=== PATIENT | female | born 1965 | race Caucasian/White ===

== ENCOUNTER 2018-05-15 13:30 | Outpatient (RCR) | payer OTHER, MEDICAID, SELFPAY ==
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
== END 2018-09-03 16:39 | disposition home or self-care (01) ==
LOC: PHYS 13:30
PROVIDERS: Family Provider Family Medicine; PCP Family Medicine; Visit Provider Family Medicine
DX: M54.30 Sciatica, unspecified side (principal); M25.559 Pain in unspecified hip
CPT/HCPCS: 97035; 97110; 97140; 97162; 97535

== ENCOUNTER 2018-07-02 15:02 | Emergency (ER) | payer OTHER, MEDICAID, SELFPAY ==
[2018-07-02 15:19] VITALS: BP 149/93; PULSE 122; RESP 20; TEMP 36.7; O2SAT 96
--- NOTE | 2018-07-02 15:23 | ED_ITS ---
HPI - Back Pain/Injury <Yusra Lujan, KNIFE SHARPENER-BC - Last Filed: 07/02/18 17:41> General Chief Complaint: Back Pain/Injury Stated Complaint: states unable to walk for 5 days Time Seen by Provider: 07/02/18 15:07 Source: patient Mode of arrival: ambulatory Limitations: no limitations History of Present Illness HPI Narrative: The patient is a 52-year-old female nonsmoker with history of diabetes and chronic back pain who presents with a chief complaint of not being able to walk for 5 days. She was able to ambulate in the emergency department with a walker, and clarify that she is having trouble standing and walking for prolonged periods due to pain on the left side of her back. She denies any fevers nausea vomiting diarrhea or IV drug use. She states she has 3 known slipped disc in her primary care provider's placed in orthopedic referral. She has not followed up with the orthopedist for her back pain a yet, but has been in physical therapy for 3 years. She states she thinks she over did it at therapy 5 days ago, and has since had progressively worsening muscle pain on the left side of her back. She states everything ?feels tight. The patient states she occasion takes 3 Motrin for her pain, but has not taken anything other than that this morning. She presents requesting for solution other than pain medication. She also complains of some dysuria for the past month, no urgency or frequency. She states she saw her primary care physician Dr. Valdez last week. She denies any new weakness, numbness, tingling incontinence of bowel or incontinence of bladder. Related Data Home Medications Medication Instructions Recorded Confirmed Respironics DreamStation BIPAP #1 ea 05/21/18 07/02/18 fluticasone propion-salmeterol 1 puff INHALATION BID 07/02/18 07/02/18 [Wixela Inhub] glimepiride 2 mg PO DAILY 07/02/18 07/02/18 losartan 50 mg PO DAILY 07/02/18 07/02/18 metformin 1,000 mg PO BID 07/02/18 07/02/18 thyroid (pork) [[place] Thyroid] 135 mg PO DAILY 07/02/18 07/02/18 triamterene-hydrochlorothiazid 1 cap PO DAILY 07/02/18 07/02/18 Previous Rx's Medication Instructions Recorded cyclobenzaprine 10 mg PO TID PRN #30 tab 07/02/18 diclofenac sodium 2 gram TOP QID #100 gram 07/02/18 lidocaine 1 patch TOP DAILY #15 each 07/02/18 sulfamethoxazole-trimethoprim 1 tab PO BID #6 tab 07/02/18 Allergies Allergy/AdvReac Type Severity Reaction Status Date / Time No Known Drug Allergies Allergy Unverified 05/21/18 16:21 Review of Systems <NICOLA Fortune - Last Filed: 07/02/18 17:41> Review of Systems GENERAL: Denies chills, fatigue, malaise, fever, sweats. HEENT: Denies sinus pain, ear pain, sore throat, difficulty swallowing, dizziness. RESPIRATORY: Denies dyspnea, cough, wheezing, hemoptysis, sputum. CARDIOVASCULAR: Denies chest pain, palpitations, orthopnea, edema, GASTROINTESTINAL: Denies nausea, vomiting, abdominal pain, diarrhea, constipation, melena. : See HPI MUSCULOSKELETAL: See HPI SKIN: Denies rash, skin lesions, or other NEUROLOGIC: Denies weakness, headache, numbness, change in speech, confusion, seizures, incoordination. PSYCHIATRIC: No concerning psychosocial issues. 12 point review of systems is negative except for those stated above PFSH <NICOLA Fortune - Last Filed: 07/02/18 17:41> Social History Smoking Status: Never smoker Social History Smoking Status: Never smoker Exam <NICOLA Fortune - Last Filed: 07/02/18 17:41> Narrative Exam Narrative: GENERAL: This is a well-nourished, well-developed patient, appears uncomfortable HEAD: Atraumatic. Normocephalic. No temporal or scalp tenderness. EYES: Pupils equal round and reactive. Extraocular motions intact. No scleral icterus. No injection or drainage. no nystagmus. ENT: Nose without bleeding, purulent drainage or septal hematoma. Throat without erythema, tonsillar hypertrophy or exudate. Uvula midline. Airway patent. NECK: Trachea midline. No JVD or lymphadenopathy. Supple, nontender, no meningeal signs. CARDIOVASCULAR: Regular rate and rhythm RESPIRATORY: Clear to auscultation. Breath sounds equal bilaterally. No wheezes, rales, or rhonchi. No cough. No increased respiratory effort. GASTROINTESTINAL: Abdomen soft, non-tender, nondistended. No hepato- splenomegaly, or palpable masses. No guarding. EXTREMITIES: No clubbing, cyanosis, or edema. No joint tenderness, effusion, or edema noted. BACK: Nontender without deformity or crepitance. No flank tenderness. no pain to C-spine or spinal palpation. Significant pain to left paraspinal muscle palpation in thoracic area. Pain to palpation of right paraspinal muscle and thoracic area. Stiff gait. Strength is equal upper and lower extremities bilaterally. Cranial nerves grossly intact. NEURO: AOx3. SKIN: No rash or erythema. No rash erythema ecchymosis noted on back. Initial Vital Signs Initial Vital Signs: Vital Signs Temperature 98.0 F 07/02/18 15:19 Pulse Rate 122 H 07/02/18 15:19 Respiratory Rate 20 07/02/18 15:19 Blood Pressure 149/93 H 07/02/18 15:19 Pulse Oximetry 96 07/02/18 15:19 <Margarette Fish DO - Last Filed: 07/05/18 16:32> Initial Vital Signs Initial Vital Signs: Vital Signs Temperature 98.0 F 07/02/18 15:19 Pulse Rate 122 H 07/02/18 15:19 Respiratory Rate 20 07/02/18 15:19 Blood Pressure 149/93 H 07/02/18 15:19 Pulse Oximetry 96 07/02/18 15:19 Course <RANULFO Fortune-ASHLEY - Last Filed: 07/02/18 17:41> Course Narrative: I checked on the patient several times throughout her stay in the emergency department. She declined pain medication, but felt much improved after Flexeril and a lidocaine patch. I did discuss with her that her 1st urine sample had high level of squamous cells, so she obtained another sample. Orders Ordered: Discontinued Medications Cyclobenzaprine HCl (Flexeril) 10 mg PO NOW ONE Stop: 07/02/18 15:20 Last Admin: 07/02/18 15:31 Dose: 10 mg Lidocaine (Lidoderm) 1 each TOP NOW ONE Stop: 07/02/18 15:20 Last Admin: 07/02/18 15:37 Dose: 1 each Vital Signs - 8 hr 07/02/18 15:19 Temperature 98.0 F Pulse Rate 122 H Respiratory Rate 20 Blood Pressure 149/93 H Pulse Oximetry 96 <Margarette Fish DO - Last Filed: 07/05/18 16:32> Orders Ordered: Discontinued Medications Cyclobenzaprine HCl (Flexeril) 10 mg PO NOW ONE Stop: 07/02/18 15:20 Last Admin: 07/02/18 15:31 Dose: 10 mg Lidocaine (Lidoderm) 1 each TOP NOW ONE Stop: 07/02/18 15:20 Last Admin: 07/02/18 15:37 Dose: 1 each Vital Signs - 8 hr 07/02/18 15:19 Temperature 98.0 F Pulse Rate 122 H Respiratory Rate 20 Blood Pressure 149/93 H Pulse Oximetry 96 MDM - Back Pain/Injury <RANULFO Fortune-ASHLEY - Last Filed: 07/02/18 17:41> Lab Data Lab Results 07/02/18 07/02/18 Range/Units 15:45 16:54 Urine RBC None seen 0-1/hpf (0-5/HPF) Urine WBC 10-30/hpf H 1-5/hpf D (0-5/HPF) Ur Squamous Epith Cells 10-30 /hpf H 1-5 /hpf D (0-5/HPF) Ur Transition Epith Cell 1-5/hpf (0-5/HPF) Amorphous Sediment 1+ Urine Bacteria Moderate (10-30) H Few (2-10) H (None) Hyaline Casts 1-5/lpf (None) Urine Mucus 1+ H (Negative) Ur Culture Indicated? Cult not indicated Cult not indicated Urine Dip Bedside Urine Glucose 100 mg/dl Bedside Urine Bilirubin - Negative Bedside Urine Ketone ++ 40 Urine Specific [place] 1.030 Bedside Urine Occult Blood +/- Bedside Urine pH 5.5 Bedside Urine Protein +++ 300 Bedside Urine Urobilinogen 1+ 2mg Bedside Urine Nitrite + Positive Bedside Urine Leukocytes +++ 500 Esterase MDM Narrative Medical decision making narrative: The patient is a 52-year-old female with history of who presents with a chief complaint of left-sided back pain. she did not want narcotic pain medication, but felt much better after Flexeril as well as a lidocaine patch to the emergency department. She had some urinary symptoms such as dysuria, and her 1st UA sample had many squamous cells. However a repeat had nitrites as well as a small bacteria and leukocyte esterase. Given the 2nd urine dip, I will treat her for UTI this point time with Macrobid. She does not have any red flag symptoms including incontinence or saddle anesthesia. She does not have history of IV drug use. I discussed at length follow up with her primary care provider as well as her pending referral to Orthopedics. Patient was given a prescription of lidocaine patch, Voltaren gel as well as Flexeril. Discussed return precautions of saddle anesthesia, incontinence of bowel or bladder or acute concerns. She was able to ambulate around the emergency department well prior to discharge. <Margarette Fish, - Last Filed: 07/05/18 16:32> Lab Data Lab Results 07/02/18 07/02/18 Range/Units 15:45 16:54 Urine RBC None seen 0-1/hpf (0-5/HPF) Urine WBC 10-30/hpf H 1-5/hpf D (0-5/HPF) Ur Squamous Epith Cells 10-30 /hpf H 1-5 /hpf D (0-5/HPF) Ur Transition Epith Cell 1-5/hpf (0-5/HPF) Amorphous Sediment 1+ Urine Bacteria Moderate (10-30) H Few (2-10) H (None) Hyaline Casts 1-5/lpf (None) Urine Mucus 1+ H (Negative) Ur Culture Indicated? Cult not indicated Cult not indicated Urine Dip Bedside Urine Glucose 100 mg/dl Bedside Urine Bilirubin - Negative Bedside Urine Ketone ++ 40 Urine Specific [place] 1.030 Bedside Urine Occult Blood +/- Bedside Urine pH 5.5 Bedside Urine Protein +++ 300 Bedside Urine Urobilinogen 1+ 2mg Bedside Urine Nitrite + Positive Bedside Urine Leukocytes +++ 500 Esterase Discharge Plan Departure Patient Disposition: Home Clinical Impression: Muscle spasm Thoracic back pain Qualifiers: Chronicity: chronic Back pain laterality: left Qualified Code(s): M54.6 - Pain in thoracic spine UTI (urinary tract infection) Qualifiers: Urinary tract infection type: site unspecified Hematuria presence: with hematuria Qualified Code(s): N39.0 - Urinary tract infection, site not specified Discharge Date/Time: 07/02/18 17:53 Interventions: ED Discharge Assessment Last Done: 07/02/18 17:53 Instructions: DI for Low Back Pain, DI for Urinary Tract Infection (UTI), DI for Back Spasm, DI for Thoracic Back Pain Activity Restrictions/Additional Instructions: Today we gave you muscle relaxers and lidocaine patches for your pain. this appeared to help her pain in the emergency department. Please follow up with your primary care provider and orthopedist with the referral goes through. Come back to the emergency department for any acute concerns such as incontinence of bowel, incontinence of bladder or numbness where you would sit in a horse. Please be aware that the muscle relaxer can be sedating. I also gave you prescription for Voltaren gel, which is a topical anti-inflammatory. I am also giving you an antibiotic for a urinary tract infection. Please monitor for worsening, fevers vomiting or any acute concerns. Come back to the emergency department for any acute concerns of lease follow up with primary care physician as scheduled on the of next month. Prescriptions: New cyclobenzaprine 10 mg tablet 10 mg PO TID PRN (Reason: muscle spasm) Qty: 30 RF: 0 lidocaine 5 % adhesive patch,medicated 1 patch TOP DAILY Qty: 15 RF: 0 diclofenac sodium 1 % gel 2 gram TOP QID Qty: 100 RF: 0 sulfamethoxazole-trimethoprim 800-160 mg tablet 1 tab PO BID Qty: 6 RF: 0 No Action losartan 50 mg tablet 50 mg PO DAILY RF: 0 fluticasone propion-salmeterol [Wixela Inhub] 250-50 mcg/dose blister with device 1 puff Inhalation BID RF: 0 triamterene-hydrochlorothiazid 37.5-25 mg capsule 1 cap PO DAILY RF: 0 glimepiride 2 mg tablet 2 mg PO DAILY RF: 0 metformin 1,000 mg tablet 1,000 mg PO BID RF: 0 thyroid (pork) [[place] Thyroid] 90 mg tablet 135 mg PO DAILY RF: 0 Respironics DreamStation BIPAP Qty: 1 RF: 0 Referrals: Lebron Valdez MD [Primary Care Provider] - <Margarette Fish DO - Last Filed: 07/05/18 16:32> [facility] ED Attending Krzysztofature Attestation: I was immediately available in the department for consultation. Documentation has been reviewed. I agree with assessment and plan.
[2018-07-02] MEDS: CYCLOBENZAPRINE 10 MG TABLET PO (15:31)
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
[2018-07-02] MEDS: LIDOCAINE PATCH 1 EACH ADH..PATCH TOP (15:37)
[2018-07-02 15:47] LABS: RBC Urine None Seen (0-5/HPF)
[2018-07-02 15:58] LABS: Amorphous Sediment Urine 1+; Bacteria Urine Moderate (10-30); Culture Indicated Urine Cult Not Indicated; Mucus Urine 1+ (Negative); Squamous Epithelial Cell Urine 10-30 /HPF (0-5/HPF); Transitional Epi Cells Urine 1-5/HPF (0-5/HPF); WBC Urine 10-30/HPF (0-5/HPF)
[2018-07-02 17:23] LABS: Bacteria Urine Few (2-10); Culture Indicated Urine Cult Not Indicated; Hyaline Casts Urine 1-5/LPF; RBC Urine 0-1/HPF (0-5/HPF); Squamous Epithelial Cell Urine 1-5 /HPF (0-5/HPF); WBC Urine 1-5/HPF (0-5/HPF)
[2018-07-02 17:45] VITALS: BP 182/103; PULSE 111; RESP 18; O2SAT 96
== END 2018-07-02 17:53 | disposition home or self-care (01) ==
PROVIDERS: Emergency Provider Nurse Practitioner Family; Family Provider Family Medicine; PCP Family Medicine
DX: M62.838 Other muscle spasm (principal); N39.0 Urinary tract infection, site not specified; M54.6 Pain in thoracic spine
CPT/HCPCS: 81003; 81015; 87086; 99282; 99283

== ENCOUNTER → 2018-07-25 19:02 | Outpatient (CLI) | payer OTHER, MEDICAID, SELFPAY ==
--- NOTE | 2018-07-25 19:09 | DI.MRI.S_ITS ---
PROCEDURE: MR LUMBAR SPINE WO CON INDICATIONS: Radiculopathy, lumbar region TECHNIQUE: Noncontrast sagittal T1 spin echo and T2 fast echo, sagittal STIR, axial T1 and T2 fast spin echo through the lumbar spine. In cases with scoliosis, additional coronal T2 fast spin echo may be performed. COMPARISON: [facility], MR, L-SPINE WITHOUT CONTRAST, 10/21/2014, 13:10. [facility], MR, L-SPINE WITHOUT CONTRAST, 02/28/2010, 18:13. FINDINGS: Image quality: Excellent. Alignment and Curvature: There is normal bony alignment. Bone Marrow: Marrow is of normal overall signal. No acute vertebral body compression fractures. Spinal Cord: Conus medullaris terminates at the L1 level. Visualized cord demonstrates normal signal and size. Paraspinous Soft Tissues: No paravertebral masses. T12-L1: Normal appearance. L1-L2: Mild to moderate loss of disc height and disc signal can be seen. No neural foraminal or central canal narrowing are seen. Stable from the prior study. L2-L3: Moderate loss of disc height is seen. Loss of disc signal is seen. Mild to moderate disc bulge is seen. No significant neural foraminal narrowing is seen. An annular fissure is again seen posteriorly, as on series 4 image 10. Stable from the prior study. L3-L4: The disc height is well-preserved. Loss of disc signal is seen at this level. Minimal disc bulge is seen. There is mild to moderate facet hypertrophy seen. Mild left-sided and no right-sided neural foraminal narrowing is seen. The central canal is widely patent. No significant change from the prior. L4-L5: The disc height is well-preserved. Loss of disc signal is seen at this level. Mild to moderate disc bulge is seen. Mild facet joint hypertrophy is seen. There is minimal right-sided and mild left-sided neural foraminal narrowing seen. The central canal is widely patent. When comparison is made with the prior examination, these findings are similar. L5-S1: The disc height is well-preserved. Loss of disc signal is seen at this level. Mild disc bulge is seen, with a mild central disc protrusion. There is a faintly seen annular fissure posteriorly, as on series 4 image 10. Mild facet joint hypertrophy is seen. No neural foraminal narrowing is seen. No central canal narrowing is seen. Stable from the prior study. IMPRESSION: Multiple levels of lumbar spine degenerative change are seen, which are most prominent at the L2-L3 level. No significant change from 2015. Dictated by: Kumar Dominguez M.D. on 07/28/2018 at 9:14 Approved by: Kumar Dominguez M.D. on 07/28/2018 at 9:20
== END ==
PROVIDERS: Family Provider Family Medicine; PCP Family Medicine; Visit Provider Physician Assistant Surgical
DX: M47.26 Other spondylosis with radiculopathy, lumbar region (principal)
CPT/HCPCS: 72148

== ENCOUNTER 2019-04-04 16:44 | Emergency (ER) | payer OTHER, MEDICAID, SELFPAY ==
[2019-04-04 18:05] VITALS: BP 146/92; PULSE 102; RESP 16; TEMP 36.4; O2SAT 95; BMI 37.2
--- NOTE | 2019-04-04 19:06 | ED.LOWEXIN ---
HPI - Extremity Injury (Lower) General Chief Complaint: Extremity Injury, Lower Stated Complaint: thinks she blew out her right calf Time Seen by Provider: 04/04/19 18:19 Source: patient and family Mode of arrival: Wheelchair Limitations: no limitations History of Present Illness HPI Narrative: 53-year-old female history of arthritis and fibromyalgia here for evaluation of right calf pain. Patient states that earlier this evening she got out of her car and after taking just a few steps she felt a ?pop? in her right calf. Since then she has had pain in the calf. No prior injury. Is able to walk but it is painful. Has not tried anything for symptoms prior to arrival Related Data Home Medications Medication Instructions Recorded Confirmed Respironics DreamStation BIPAP #1 ea 05/21/18 08/29/18 fluticasone propion-salmeterol 1 puff INHALATION BID 07/02/18 08/29/18 [Wixela Inhub] glimepiride 2 mg PO DAILY 07/02/18 08/29/18 losartan 50 mg PO DAILY 07/02/18 08/29/18 metformin 1,000 mg PO BID 07/02/18 08/29/18 thyroid (pork) [[place] Thyroid] 135 mg PO DAILY 07/02/18 08/29/18 triamterene-hydrochlorothiazid 1 cap PO DAILY 07/02/18 08/29/18 Previous Rx's Medication Instructions Recorded cyclobenzaprine 10 mg PO TID PRN #30 tab 07/02/18 diclofenac sodium 2 gram TOP QID #100 gram 07/02/18 lidocaine 1 patch TOP DAILY #15 each 07/02/18 Allergies Allergy/AdvReac Type Severity Reaction Status Date / Time No Allergy Information Allergy Verified 04/04/19 18:05 Available Review of Systems Musculoskeletal Musculoskeletal: Denies tingling Comments: Right calf pain Integumentary/Breasts Skin/Breast: Denies rash Neurologic Neurologic: Denies tingling Hematologic/Lymphatic Hematologic/Lymphatic: Denies easy bleeding and Denies easy bruising Patient History Medical History Fibromyalgia (Acute) Social History Smoking Status: Never smoker Smoking Status: Never smoker alcohol intake frequency: 0-2 drinks per day Substance Use Type: does not use Exam Initial Vital Signs Initial Vital Signs: Vital Signs Temperature 97.5 F L 04/04/19 18:05 Pulse Rate 102 H 04/04/19 18:05 Respiratory Rate 16 04/04/19 18:05 Blood Pressure 146/92 H 04/04/19 18:05 Pulse Oximetry 95 04/04/19 18:05 HENMT Head: normal to inspection and normocephalic Cardio Pulses: dorsalis pedis present on the right Skin Lesions: no lesions Rashes: no rashes Neuro Sensory Exam: no sensory deficits noted Extrem Other: Right hip unremarkable, right knee unremarkable, hamstrings unremarkable on the right. Patella tendon quadriceps tendon unremarkable on the right. Right ankle unremarkable. Does have a fullness consistent with a muscle spasm mid muscular belly of the gastrocnemius on the right. Psych Appearance: grossly normal and well kempt Course Vital Signs Vital signs: Vital Signs - 8 hr 04/04/19 18:05 04/04/19 19:42 Temperature 97.5 F L Pulse Rate 102 H 89 Respiratory Rate 16 14 Blood Pressure 146/92 H 137/77 Pulse Oximetry 95 97 MDM - Extremity Injury (Lower) MDM Narrative Medical decision making narrative: Low suspicion for fracture, low suspicion for infection, low suspicion for DVT. Suspect a muscle spasm. Patient has Flexeril at home. We did discuss stretching. Discussed the use of the muscle relaxers. No indication for further workup here in the ER. She was given return precautions and follow-up instructions. She expressed understanding and agreement plan. Discharge Plan Departure Patient Disposition: Home Clinical Impression: Muscle spasm of right calf Discharge Date/Time: 04/04/19 19:43 Instructions: DI for Muscle Spasm Activity Restrictions/Additional Instructions: Recommend light stretching like we discussed. You can also take the Flexeril like we discussed. Return to the emergency department for any new or worsening symptoms. Prescriptions: No Action cyclobenzaprine 10 mg tablet 10 mg PO TID PRN (Reason: muscle spasm) Qty: 30 RF: 0 lidocaine 5 % adhesive patch,medicated 1 patch TOP DAILY Qty: 15 RF: 0 diclofenac sodium 1 % gel 2 gram TOP QID Qty: 100 RF: 0 losartan 50 mg tablet 50 mg PO DAILY RF: 0 fluticasone propion-salmeterol [Wixela Inhub] 250-50 mcg/dose blister with device 1 puff Inhalation BID RF: 0 triamterene-hydrochlorothiazid 37.5-25 mg capsule 1 cap PO DAILY RF: 0 glimepiride 2 mg tablet 2 mg PO DAILY RF: 0 metformin 1,000 mg tablet 1,000 mg PO BID RF: 0 thyroid (pork) [[place] Thyroid] 90 mg tablet 135 mg PO DAILY RF: 0 (DME) Respironics DreamStation BIPAP Qty: 1 RF: 0 Referrals: Lebron Valdez MD [Primary Care Provider] -
--- NOTE | 2019-04-04 19:41 | PC.NURSE ---
denies trauma to extremity
[2019-04-04 19:42] VITALS: BP 137/77; PULSE 89; RESP 14; O2SAT 97
== END 2019-04-04 19:43 | disposition home or self-care (01) ==
PROVIDERS: Emergency Provider Emergency Medicine; Family Provider Family Medicine; PCP Family Medicine
DX: M62.831 Muscle spasm of calf (principal); M79.7 Fibromyalgia
CPT/HCPCS: 99281

== ENCOUNTER 2020-03-14 10:30 | Outpatient (RCR) | payer OTHER, MEDICAID, SELFPAY ==
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
--- NOTE | 2020-02-15 17:10 | PT.OPPOC ---
Physical, Occupational & Speech Therapy At [facility] Current Diagnoses Pain in unspecified hip (02/15/20) Sciatica, unspecified side (02/15/20) Muscle weakness (generalized) (02/15/20) Pain in right leg (02/15/20) Pain in left leg (02/15/20) Visit Care Team Role Provider Type Lebron Valdez MD Attending Provider Physician Family Provider Primary Care Provider Referring Provider Specialty: Family Practice Address: [address] [place] [address] [place], [facility] Email: [email or web address] Plan Of Care PT-OP-T Assessment and Plan Start: 01/14/20 17:50 Freq: Status: Active Protocol: Document 02/15/20 15:02 LRN (Rec: 02/15/20 16:46 LRN [id number]) Physical Therapy Assessment Rehab Potential Rehabilitation Potential Fair Evaluation Complexity Number of Personal Factors/Comorbidities 3 or More Number of Body Systems Impaired 4 or More Clinical Presentation at Evaluation Evolving Impairments Impairments Activity Tolerance,Pain,ROM, Soft Tissue Mobility,Strength Goals Robe Low Back & LE Pain Impairment Pain in low back and bilateral lower extremities (7-8/). Short Term Goal (STG) Decrease LBP & Bilateral LE pain to improve her ability to sleep. 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 LTG Duration 05/15/20 Decreased functional endurance Impairment Pt does not tolerate walking/ standing 10 min due to pain. Short Term Goal (STG) Pt will be able to tolerate 10 min of aerobic ex (TM, bike, UBE). Assistant Professor In Family Studies Goal (LTG) Pt will be able to walk 10-15 minutes with tolerable pain for endurance ex program. LTG Duration 05/15/20 Strength Impairment Decreased LE and core strength . Short Term Goal (STG) Pt will be able to tolerate a LE/core home strengthening program. STG Duration 03/14/19 Assistant Professor In Family Studies Goal (LTG) Pt will be able to tolerate return some form of work with tolerable pain. LTG Duration 05/15/20 HEP Impairment Pt lacks independent self care program. Mcc Goal (LTG) Pt will be independent in a self care HEP of self soft tissue mobilization, LE & core mobility and strengthening exercises. LTG Duration 05/15/20 Assessment Summary Assessment Pt presents with very limited tolerance to activity, positioning and mobilization. She appears to have poor tolerance to palpation in the soft tissue of anterior hip, lumbar paraspinals, gluteal muscles and lower extremites. She has good LE strength; therefore it appears her pain is not disc related. Her dysfunction appears to be mainly soft tissue, with many active trigger points, and possibly mechanical in nature of the lumbar spine. Physical Therapy Plan Frequency and Duration Frequency of Treatment 2x/Week Plan of Care Start Date 02/15/20 Plan of Care End Date 05/15/20 Therapeutic Interventions Therapeutic Interventions Home Exercise Program,Joint Mobilizations,Manual Therapy, Neuromuscular Re-education, Patient/Caregiver Education, Self-Care/Home Management,Soft Tissue Mobilization, Therapeutic Exercises Modalities Cold Pack/Ice Massage,Electric Stimulation,Hot Packs, Ultrasound Next Visit Focus/Plan Next Visit Plan Check Hip/Trunk strength and try special tests for SIJ dysfunction if pt tolerates. Endurance ex (TM, upright bike , UBE); LE/core strengthening for HEP as tolerated. LE/Core mobility exs for HEP as tolerated. STM with roller & TrP treatment. Plan of Care Dates Plan of Care Start Date 02/15/20 Plan of Care End Date 05/15/20 Electronically Signed by: Daisy Gold, PT 02/17/20 [id number] Please Sign and Return: I have reviewed this Plan of Care and certify that the skilled therapy services above are required to meet the patient?s needs. Physician Signature Date Printed Name and Credentials Clinical Instructor Signature Printed Name and Credentials
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
--- NOTE | 2020-03-07 09:19 | PT-OP ANOTE ---
Pt cancelled due to illness.
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
== END 2020-03-18 13:21 ==
LOC: PHYS 10:30
PROVIDERS: Family Provider Family Medicine; PCP Family Medicine; Referring Provider Family Medicine; Visit Provider Family Medicine
DX: M54.30 Sciatica, unspecified side (principal); M25.559 Pain in unspecified hip; M62.81 Muscle weakness (generalized); M79.605 Pain in left leg; M79.604 Pain in right leg
CPT/HCPCS: 97110; 97162; 97535

== ENCOUNTER → 2020-06-11 14:10 | Outpatient (CLI) | payer OTHER, MEDICAID, SELFPAY ==
--- NOTE | 2020-06-11 14:11 | DI.MRI.S_ITS ---
PROCEDURE: MR LUMBAR SPINE WO CON INDICATIONS: Sciatica, unspecified side TECHNIQUE: Noncontrast sagittal T1 spin echo and T2 fast echo, sagittal STIR, axial T1 and T2 fast spin echo through the lumbar spine. In cases with scoliosis, additional coronal T2 fast spin echo may be performed. COMPARISON: [facility], MR, L-SPINE WITHOUT CONTRAST, 02/28/2010, 18:13. [facility], MR, L-SPINE WITHOUT CONTRAST, 10/21/2014, 13:10. [facility], MR, MR LUMBAR SPINE WO CON, 07/25/2018, 19:29. [facility], CR, XR LUMBAR SPINE FLEXION EXTENSION, 07/09/2018, 15:31. FINDINGS: Image quality: Excellent. Alignment and Curvature: There is normal bony alignment. Bone Marrow: Minimal reactive endplate changes noted adjacent to the L2-L3 disc. Small Schmorl's node noted in the inferior endplate of the L2 vertebral body.. No acute vertebral body compression fractures. Spinal Cord: Conus medullaris terminates at the L1 level. Visualized cord demonstrates normal signal and size. Paraspinous Soft Tissues: No paravertebral masses. T12-L1: Normal appearance. L1-L2: Loss of disc signal. Minimal, diffuse disc bulge. No central stenosis. No neural foraminal narrowing. No neural compression. L2-L3: Loss of disc signal and height. Mild, diffuse disc bulge. Mild bilateral facet hypertrophy. No central stenosis. Mild left neural foraminal narrowing. No neural compression. Small fissure noted in the posterior annulus. L3-L4: Loss of disc signal. Mild bilateral facet hypertrophy. No central stenosis. No neural foraminal narrowing. No neural compression. L4-L5: Loss of disc signal. Mild, diffuse disc bulge. Mild bilateral facet hypertrophy. No central stenosis. Mild bilateral neural foraminal narrowing. No neural compression. Small fissure in the posterior annulus. L5-S1: Loss of disc signal. Mild, diffuse disc bulge. Mild bilateral facet hypertrophy. No central stenosis. No neural foraminal narrowing. No neural compression. IMPRESSION: 1. Multilevel degenerative disc disease. 2. Multilevel facet arthropathy. 3. No severe central canal narrowing. 4. No severe neural foraminal narrowing. 5. No neural compression. 6. L2-L3 and L4-L5 disc annulus fissures. Dictated by: Margret Buck MD, PhD on 06/13/2020 at 12:46 Approved by: Margret Buck MD, PhD on 06/13/2020 at 12:55
== END ==
PROVIDERS: Referring Provider Nurse Practitioner Family; Visit Provider Nurse Practitioner Family
DX: M51.36 Other intervertebral disc degeneration, lumbar region (principal); M47.816 Spondylosis without myelopathy or radiculopathy, lumbar region
CPT/HCPCS: 72148

== ENCOUNTER 2021-10-25 03:17 | Observation (INO) | payer OTHER, MEDICAID, SELFPAY ==
[2021-10-25] VITALS (23 sets, daily range): BP systolic 104–179; BP diastolic 44–105; PULSE 103–123; RESP 16–119; TEMP 36.5–36.9; O2SAT 90–98; BMI 36.1
--- NOTE | 2021-10-25 03:31 | DI.RAD.S_ITS ---
PROCEDURE: XR CHEST 1V INDICATIONS: chest pain TECHNIQUE: One view of the chest was acquired. COMPARISON: [facility], , CHEST 1 VIEW, 06/05/2014, 19:51. FINDINGS: Surgical changes and devices: None. Lungs and pleura: Lungs are clear. No pleural effusions or pneumothorax. Mediastinum: Mediastinal contours appear normal. Heart size is normal. Bones and chest wall: No suspicious bony lesions. Overlying soft tissues appear unremarkable. IMPRESSION: No acute cardiopulmonary disease. 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 Dictated by: Kathrine Castellanos M.D. on 10/25/2021 at 8:28 Approved by: Kathrine Castellanos M.D. on 10/25/2021 at 8:30
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
[2021-10-25 03:40] LABS: Add Manual Diff / Slide Review NO; Basophils Absolute Auto 0 /uL (0-100); Basophils Percent Auto 0.7 % (0-2); Eosinophils Absolute Auto 0 /uL (0-450); Eosinophils Percent Auto 0.7 % (2-4); Hematocrit 42.5 % (36-46); Hemoglobin 14.7 g/dL (12.0-16.0); Lymphocytes Absolute Auto 1100 /uL (1100-4500); Lymphocytes Percent Auto 18.1 % (25-40); Mean Corpuscular HGB Conc 34.7 % (30-36); Mean Corpuscular Hemoglobin 27.8 PG (26-34); Mean Corpuscular Volume 80.3 fL (80-100); Monocytes Absolute Auto 500 /uL (0-900); Monocytes Percent Auto 7.5 % (3-14); Neutrophils Absolute Auto 4400 /uL (1500-7000); Platelet Count 193 X10^3/uL (150-400); Red Blood Cell Count 5.29 X10^6/uL (4.0-5.2); White Blood Cell Count 6.1 X10^3/uL (4.5-11.0)
[2021-10-25 03:48] LABS: Alanine Aminotransferase 164 IU/L (<35); Albumin 4.8 g/dL (3.5-5.0); Albumin Globulin Ratio 1.5 (1.0-2.8); Alkaline Phosphatase 155 U/L (38-126); Aspartate Aminotransferase 107 IU/L (14-36); BUN Creatinine Ratio 38.8 (6-22); Bilirubin Total 0.6 mg/dL (0.2-1.3); Blood Urea Nitrogen 19 mg/dL (7-17); Calcium 9.9 mg/dL (8.4-10.2); Carbon Dioxide 24 mmol/L (22-32); Chloride 94 mmol/L (98-107); Creatine Kinase 34 U/L (30-135); Estimated Glomerular Filt Rate > 60 mL/min (>60); Globulin 3.3 g/dL (1.7-4.1); Glucose 404 mg/dL (70-100); HEMOLYSIS < 15 (0-50); Potassium 4.1 mmol/L (3.4-5.1); Sodium 133 mmol/L (137-145); Total Protein 8.1 g/dL (6.3-8.2)
[2021-10-25] MEDS: NITROGLYCERIN OINT 1 INCH/GM OINT...G. TOP (03:58)
[2021-10-25 04:00] LABS: Troponin I < 0.012 ng/mL (0.01-0.034)
[2021-10-25 04:04] LABS: Prothrombin Time 11.9 SECONDS (10.1-12.7)
[2021-10-25 04:05] LABS: D Dimer 718 ng/ml (<500)
[2021-10-25 04:06] LABS: PTT Partial Thromboplastin Tim 33 SECONDS (26-36)
[2021-10-25 04:21] LABS: COVID19 -Nasal RAPID Negative (Negative)
--- NOTE | 2021-10-25 04:38 | DI.CT.S_ITS ---
PROCEDURE: CT ANGIO CHEST PE PROTOCOL INDICATIONS: Chest pain TECHNIQUE: After the administration of intravenous contrast, 2 mm thick sections acquired from the pulmonary apices to the posterior costophrenic angles. 3-dimensional maximum intensity projection (MIP) coronal and sagittal reformats were then acquired through the thorax. For radiation dose reduction, the following was used: automated exposure control, adjustment of mA and/or kV according to patient size. COMPARISON: None. FINDINGS: Image quality: Excellent. Pulmonary arteries: Pulmonary arteries are normal in size, and demonstrate no intraluminal filling defects to suggest central pulmonary embolism. Lungs and pleura: A few pulmonary nodules. For example: -Right middle lobe subpleural pulmonary nodule measuring 0.4 cm, (5/137). -Right lower lobe subpleural pulmonary nodule or nodular opacity measuring 0.9 x 0.6 cm, (5/153). -Left lower lobe pulmonary nodule measuring 0.3 cm, (5/149). There are a few calcified granuloma. Central airways are clear. No pleural effusions or pneumothorax. Mediastinum: Heart size is normal, without pericardial effusion. No mediastinal or hilar adenopathy. Thoracic aorta is normal in caliber and enhancement. Esophagus is normal in caliber, without hiatal hernia. Bones and chest wall: No suspicious bony lesions. Ribs and thoracic spine appear intact throughout. Subcentimeter left thyroid nodule. No axillary or supraclavicular adenopathy. Abdomen: Visualized upper abdominal solid organs appear normal in the early arterial phase of enhancement. Hepatic steatosis. IMPRESSION: 1. No pulmonary embolism. 2. No acute airspace opacity. 3. A few pulmonary nodules. Largest measuring up to mean diameter 0.8 cm. -recommend follow-up CT chest in 6 months. This report is concordant with the overnight preliminary interpretation. Dictated by: Monster Sams M.D. on 10/25/2021 at 8:45 Approved by: Monster Sams M.D. on 10/25/2021 at 9:04
[2021-10-25] MEDS: SODIUM CHLORIDE 0.9% 500 ML 1000 ML IV (04:44)
[2021-10-25] MEDS: FAMOTIDINE 20 MG/2 ML VIAL IV (05:04)
[2021-10-25] MEDS: methylPREDNISolone 125 MG/2 ML VIAL IV (05:06)
[2021-10-25] MEDS: diphenhydrAMINE 50 MG/ML VIAL 25 MG IV (05:08)
--- NOTE | 2021-10-25 09:03 | DI.ECHO.S_ITS ---
[facility]---------+ [facility] +---------+ : : [address] [place] : : : : [id number] : : : : Phone: [phone] Echocardiogram Report + + :Name: TYRON ELIZABETH Study Date: 10/25/2021 Height: 63 in : :[facility] ReadingLocation: Weight: 204 lb : : Gender: Female BSA: 2.0 m2 : :: 1965 Age: 56 yrs BP: 125/73 mmHg: :Reason For Study: CHEST PAIN : :Ordering Physician: VASU, : :TERESO Dominguez Performed By: Traci Coley : :Referring: TERESO LEONE : + + Interpretation Summary 1) Normal left ventricular thickness, size, wall motion, and systolic function (EF 65-70%). 2) Normal right ventricular size and function. 3) No significant valvular abnormalities. 4) No prior Echo available for comparison. Procedure: A two-dimensional transthoracic echocardiogram with color flow and Doppler was performed. The study quality was technically adequate. A contrast injection of Definity was performed to improve assessment of LV function. There is no prior echocardiogram noted for this patient. The patient was in sinus tachycardia with heart rates between 107-113 bpm during the exam. Left Ventricle: The left ventricle is normal in size and wall thickness. The ejection fraction is estimated to be 65-70%. Left ventricular systolic function appears normal without focal wall motion abnormalities. Diastolic function could not be accurately assessed due to tachycardia. Right Ventricle: The right ventricle is not well visualized. The right ventricle grossly appears normal in size with probable normal systolic function. Atria: The left atrial size is normal. Right atrial size is normal. There is no Doppler evidence for an interatrial shunt. Mitral Valve: The mitral valve is normal in structure and function. There is no mitral regurgitation noted. Aortic Valve: The aortic valve is trileaflet. The aortic valve opens well. There is no aortic valve stenosis. No aortic regurgitation is present. Tricuspid Valve: The tricuspid valve is normal in structure and function. There is trace tricuspid regurgitation. Pulmonary artery pressures cannot be estimated because of the lack of a measurable TR jet velocity. Pulmonic Valve: The pulmonic valve leaflets are thin and pliable; valve motion is normal. There is no pulmonic valvular regurgitation. Great Vessels: The aortic root is normal size. The dimensions of the ascending aorta are normal. The inferior vena cava was not visualized. Pericardium/ Pleura There is no pericardial effusion. There is no pleural effusion. MMode/2D Measurements & Calculations LVIDd: 4.3 cm LVOT diam: 1.9 cm LVIDs: 3.1 cm Ao root diam: 3.3 cm FS: 26.6 % asc Aorta Diam: 3.2 cm EPSS: 0.93 cm IVSd: 1.2 cm LVPWd: 0.97 cm LV alas. diameter/BSA (cm/m^2): 2.2 LV sys. diameter/BSA (cm/m^2): 1.6 LA A2 area: 14.7 cm2 RA long axis: 4.7 cm LA A4 area: 16.9 cm2 RA area: 10.7 cm2 LA length (vol): 5.7 cm RA vol: 20.9 ml LA vol: 36.8 ml RA : 10.7 ml/m2 LA vol index: 18.8 ml/m2 TAPSE: 2.4 cm Doppler Measurements & Calculations Ao V2 max: 148.2 cm/sec LVOT Max Petros: 97.8 cm/sec Ao V2 mean: 96.2 cm/sec LV V1 max P.8 mmHg Ao max P.8 mmHg LV V1 VTI: 15.9 cm Ao mean P.3 mmHg MARILEE(I,D): 2.0 cm2 Ao V2 VTI: 23.1 cm MARILEE(V,D): 1.9 cm2 sev ratio: 0.69 MARILEE indexed to BSA (cm^2/m^2): 1.0 Med Peak E' Petros: 5.9 cm/sec PA V2 max: 113.3 cm/sec Lat Peak E' Petros: 8.0 cm/sec PA V2 mean: 74.5 cm/sec PA mean P.5 mmHg PA pr(Accel): 44.3 mmHg SV(LVOT): 46.9 ml Reading Physician:01:18 PM
--- NOTE | 2021-10-25 09:10 | PC.NURSE ---
Recieved a call from the main registration desk that patient needed assistance. I arrived to find patient sitting at bedside in between the rails that were up on the bed. Patient had removed one IV from R hand and stated she needed to use the bathroom. I assisted patient to the bathroom and back in bed, bandaging the IV insertion site. I gave patient the call light.
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
--- NOTE | 2021-10-25 11:17 | PC.NURSE ---
pt took own 400mg ibuprofen from purse for back discomfort. Dr. Hernandez made aware, no new orders. pt educated on importance of letting staff knowing about medications/pain needs. offered meds for comfort from hospital orders, pt declined.
[2021-10-25 11:56] LABS: Troponin I < 0.012 ng/mL (0.01-0.034)
[2021-10-25] MEDS: TRIAMTERENE/HCTZ 37.5/25 CAPSULE 1 CAP PO (12:51)
[2021-10-25] MEDS: INSULIN LISPRO 100 UNIT/ML 3ML VIAL SUBCUT (17:57)
[2021-10-25] MEDS: METFORMIN HCL 500 MG TABLET 1000 MG PO (20:01)
--- NOTE | 2021-10-25 20:25 | PC.NURSE ---
Patient expressed concern over a few topics during their brief stay including the quality of their dinner, the speed at which it was delivered, and the time it took to onboard some of their home medications. Two medications had not been entered which they take at home. I contacted Dr. Manzano to input those medications at 2014, while awaiting a callback, patient stated they were going to leave. When asked to clarify, they elaborated on the concerns listed above. Dr. Manzano then called me back (time: 2020) and was informed of patient's desire to leave AMA while also giving additional orders for anxiety medication. I attempted to readdress patient's concerns without success. Patient education was provided on consequences of leaving AMA and the associated risks. Left antecubital PIV removed and collected all patient belongings. Patient was asked to sign AMA paperwork to which their response was asking which way the exit was. AMA paperwork was not signed.
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
== END 2021-10-25 20:25 | disposition home or self-care (01) ==
LOC: ED 06:38 → AC 07:03
PROVIDERS: Admitting Provider Family Medicine; Emergency Provider Emergency Medicine; PCP Family Medicine; Visit Provider Family Medicine
DX: R07.9 Chest pain, unspecified (principal); I10 Essential (primary) hypertension; E03.9 Hypothyroidism, unspecified; E11.9 Type 2 diabetes mellitus without complications; Z79.84 Long term (current) use of oral hypoglycemic drugs; R74.01 Elevation of levels of liver transaminase levels; Z20.822 Contact with and (suspected) exposure to COVID-19
CPT/HCPCS: 36415; 71045; 71275; 80053; 82550; 82962; 84484; 85025; 85379; 85610; 85730; 87635; 93005; 93010; 93306; 96361; 96372; 96374; 96375; 99284; C9803; G0378; J1200; J1815; J2930; Q9967

== ENCOUNTER → 2023-04-29 15:01 | Outpatient (CLI) | payer OTHER, MEDICAID, SELFPAY ==
[2021-10-25 11:37] VITALS: BMI 36.1
--- NOTE | 2023-04-29 15:02 | DI.US.S_ITS ---
PROCEDURE: US PERIPH VENOUS LOW EXTREM BI INDICATIONS: BILATERAL LEG PAIN TECHNIQUE: Real-time imaging, as well as color and pulse Doppler interrogation, were performed of the deep veins of both legs from the inguinal ligament to the popliteal fossa, with documentation of the visualized calf veins. COMPARISON: None. FINDINGS: Right: The common femoral, femoral, popliteal, and the visualized calf veins are normally compressible, and free of intraluminal thrombus. Color and pulse Doppler demonstrate normal phasic intravascular flow. There is normal augmentation response to distal compression maneuver. Left: The common femoral, femoral, popliteal, and the visualized calf veins are normally compressible, and free of intraluminal thrombus. Color and pulse Doppler demonstrate normal phasic intravascular flow. There is normal augmentation response to distal compression maneuver. IMPRESSION: No findings of deep venous thrombosis in either lower extremity. Dictated by: Maximo Romero M.D. on 04/29/2023 at 16:39 Approved by: Maximo Romero M.D. on 04/29/2023 at 16:40
== END ==
PROVIDERS: PCP Family Medicine; Referring Provider Family Medicine; Visit Provider Family Medicine
DX: G62.9 Polyneuropathy, unspecified (principal); M79.604 Pain in right leg; M79.605 Pain in left leg; M25.571 Pain in right ankle and joints of right foot; M25.572 Pain in left ankle and joints of left foot; M79.7 Fibromyalgia; E55.9 Vitamin D deficiency, unspecified; G89.29 Other chronic pain
CPT/HCPCS: 93970